=== PATIENT | male | born 1955 ===

== ENCOUNTER 2019-12-15 00:16 | Inpatient (IN) | payer OTHER ==
[~2019-12-15] VITALS: Ht 175.3 cm; Wt 83.5 kg
[2019-12-15] MEDS ORDERED: SODIUM CHLORIDE 0.9% 1,000 ML IV SCH (00:41)
--- NOTE | 2019-12-15 00:47 | NUR ---
THIS IS A 64 YO M BIB EMS FROM [facility] ED W/ C/O SUDDEN ONSET WEAKNESS AND DIZZINES 4 HOURS AGO, NOW RESOLVED. PT REPORTS HE WAS TOLD HE MAY NEED PACEMAKER. PER EMS PT WAS IN JUNCTIONAL RHYTHM IN THE 30'S. GIVEN ATROPINE 0.5 X2 W/ DESIRED EFFECT. PT IS AWAKE AND ALERT. NO COMPLAINTS AT THIS TIME. RESTING ON GURNEY W/ CALL LIGHT IN REACH AND SIDE RAILS UPX2. CONNECTED TO ALL MONITORING. BRADYCARDIC, OTHER VS WDL. AT BEDSIDE FOR ED EVAL. AWAITING ORDERS.
[2019-12-15] MEDS ORDERED: HEPARIN 5,000 UNITS/ML, 1ML ONE (00:55)
[2019-12-15] MEDS ORDERED: ACETAMINOPHEN 325 MG TABLET PO PRN (01:00)
[2019-12-15] MEDS ORDERED: HEPARIN 5,000 UNITS/ML, 1ML SQ SCH (01:00)
--- NOTE | 2019-12-15 01:28 | NUR ---
ADMITTING PROVIDER AT BEDSIDE.
--- NOTE | 2019-12-15 01:47 | NUR ---
REPORT GIVEN TO [facility]. PT IS READY FOR TRANSPORT AT THIS TIME. IVF INFUSING APPROPRIATELY.
[2019-12-15 01:59] LABS: TROPONIN I < 0.015 ng/mL (0.000-0.045)
[2019-12-15 02:04] LABS: FREE T4 (FREE THYROXINE) 0.96 ng/dL (0.76-1.46)
[2019-12-15 02:10] VITALS: BP 139/65
[2019-12-15] MEDS ORDERED: CEFAZOLIN PMX 1GM/50ML 50 ML IVPB ONE (08:30)
[2019-12-15] MEDS: SENNA/DOCUSATE TABLET PO SCH (09:00)
[2019-12-15 09:09] LABS: TROPONIN I < 0.015 ng/mL (0.000-0.045)
[2019-12-15] MEDS ORDERED: MIDAZOLAM 1 MG/ML, 5ML ONE ×2 (10:02→10:27)
[2019-12-15] MEDS ORDERED: CEFAZOLIN PMX 1GM/50ML 0 ML ONE (10:02)
[2019-12-15] MEDS ORDERED: FENTANYL PF 100 MCG/2ML ONE ×2 (10:02→10:27)
[2019-12-15] MEDS ORDERED: LIDOCAINE 2%, 20ML ONE ×2 (10:03→10:27)
[2019-12-15] MEDS ORDERED: CEFAZOLIN 1,000 MG ONE ×2 (10:03→10:27)
[2019-12-15] MEDS ORDERED: CEFAZOLIN PMX 1GM/50ML 50 ML ONE (10:27)
[2019-12-15] MEDS: SODIUM CHLORIDE 0.9% 1,000 ML IV SCH ×2 (12:00→16:04)
[2019-12-15] MEDS ORDERED: ONDANSETRON 2MG/ML, 2ML IV PRN (12:30)
[2019-12-15] MEDS ORDERED: HYDROcodone/APAP 5/325 TABLET PO PRN (12:30)
[2019-12-15] MEDS ORDERED: [UNRECOGNIZED DRUG - REMARK] MC PRN (12:30)
[2019-12-15 12:35] VITALS: BP 113/73
[2019-12-15] MEDS: CEFAZOLIN PMX 1GM/50ML 50 ML IVPB SCH (18:06)
[2019-12-15] MEDS: SODIUM CHLORIDE FLUSH 10ML SYR IVF SCH (19:45)
[2019-12-15 19:55] VITALS: BP 103/70
[2019-12-16] MEDS: SODIUM CHLORIDE 0.9% 1,000 ML IV SCH (00:04)
[2019-12-16 00:07] VITALS: BP 111/66
[2019-12-16] MEDS: CEFAZOLIN PMX 1GM/50ML 50 ML IVPB SCH (02:43)
[2019-12-16 05:08] LABS: BASOPHILS # (AUTO) 0.03 x10^3/uL (0-0.1); BASOPHILS % (AUTO) 0 % (0-1); EOSINOPHILS # (AUTO) 0.25 x10^3/uL (0-0.4); EOSINOPHILS % (AUTO) 4 % (1-7); LYMPHOCYTES # (AUTO) 2.01 x10^3/uL (1-3.4); LYMPHOCYTES % (AUTO) 29 % (22-44); MD NO; MEAN CORPUSCULAR HEMOGLOBIN 30.3 pg (27.5-34.5); MEAN CORPUSCULAR HGB CONC 32.1 g/dL (33.2-36.2); MEAN CORPUSCULAR VOLUME 94.3 fL (81-97); MEAN PLATELET VOLUME 9.7 fL (7.4-10.4); MONOCYTES # (AUTO) 0.56 x10^3/uL (0.2-0.8); MONOCYTES % (AUTO) 8 % (2-9); NEUTROPHILS # (AUTO) 4.02 x10^3/uL (1.8-6.8); NEUTROPHILS % (AUTO) 59 % (42-75); PLATELET COUNT 214 x10^3/uL (130-400); RED BLOOD COUNT 4.56 x10^6/uL (4.38-5.82); RED CELL DISTRIBUTION WIDTH 13.6 % (9.4-14.8)
[2019-12-16 05:15] LABS: ANION GAP 4 mmol/L (5-15); CALCIUM 8.6 mg/dL (8.5-10.1); CHLORIDE 111 mmol/L (98-107); CREATININE 0.91 mg/dL (0.7-1.3)
[2019-12-16] MEDS: SODIUM CHLORIDE FLUSH 10ML SYR IVF SCH (09:00)
[2019-12-16] MEDS: SENNA/DOCUSATE TABLET PO SCH (09:00)
[2019-12-16 09:07] VITALS: BP 111/69
== END 2019-12-16 10:30 | disposition home or self-care (01) | DRG 244 ==
LOC: ED 01:45 → EDIP 02:04 → 5SO 02:28 → DCLOUNGE 12-16 10:24
PROVIDERS: ADMIT Family Medicine; ATTEND Family Medicine
PROC: 02H63JZ Insertion of Pacemaker Lead into Right Atrium, Percutaneous Approach (ICD-10-PCS; principal; 2019-12-15)
PROC: 02HK3JZ Insertion of Pacemaker Lead into Right Ventricle, Percutaneous Approach (ICD-10-PCS; 2019-12-15)
PROC: 0JH606Z Insertion of Pacemaker, Dual Chamber into Chest Subcutaneous Tissue and Fascia, Open Approach (ICD-10-PCS; 2019-12-15)
DX: I49.5 Sick sinus syndrome (principal); I45.9 Conduction disorder, unspecified; Z87.891 Personal history of nicotine dependence; J33.9 Nasal polyp, unspecified; R94.6 Abnormal results of thyroid function studies; Z88.8 Allergy status to other drugs, medicaments and biological substances; I44.0 Atrioventricular block, first degree; Z90.49 Acquired absence of other specified parts of digestive tract
CPT/HCPCS: 33208; 36415; 96372; 99285; J3490; 71045; 80048; 84439; 84443; 84481; 84484; 85025; 93005; 93306; 99156; 99157; C1779; C1785; C1892; G0378; J0690; J1644; J2250; J3010; J7030